=== PATIENT | female | born 1945 | race Caucasian/White ===

== ENCOUNTER 2018-02-20 19:28 | Inpatient (IN) | payer MEDICARE, MEDICAID ==
[~2018-02-20] VITALS: Ht 162.6 cm; Wt 75.5 kg
[2018-02-20 19:28] VITALS: BP 175/73
[2018-02-20] MEDS ORDERED: FOLIC ACID1 MG ORAL (19:36)
[2018-02-20] MEDS ORDERED: NORVASC10 MG ORAL (19:36)
[2018-02-20] MEDS ORDERED: ELIQUIS2.5 MG PO (19:36)
[2018-02-20] MEDS ORDERED: METOPROLOL-HCT1 EAC1 ORAL (19:36)
[2018-02-20] MEDS ORDERED: CRESTOR20 MG ORAL (19:36)
[2018-02-20] MEDS ORDERED: JANUVIA100 MG ORAL (19:36)
[2018-02-20] MEDS ORDERED: AMARYL1 MG ORAL (19:36)
[2018-02-20] MEDS ORDERED: BENICAR HCT 401 EACH ORAL (19:36)
[2018-02-20] MEDS ORDERED: ISOSORBIDE DINI10 MG ORAL (19:36)
[2018-02-20 21:20] VITALS: BP 168/72
--- NOTE | 2018-02-20 21:43 | Emergency Room Report ---
History of Present Illness General Chief Complaint: Multiple Trauma/Fall Source: Patient (Sheila Aguirre DO) Present Illness HPI This patient was shopping at the [place] when she stepped off of a curb incorrectly and fell onto her left side. She fell onto her left hip primarily. She has a history of a hip replacement on this side. She has pain in her left hip and was unable to ambulate after the incident secondary to pain. She denies head trauma or other injury. She denies neck pain. She is chest pain or shortness of breath. She denies abdominal pain. She has no other complaints. (Sheila Aguirre DO) Allergies: Coded Allergies: No Known Allergies (Unverified , 02/20/18) Patient History Past Medical History: see triage record, DM, HTN, CAD, other - On elaquis Past Surgical History: other - L. hip replacement Social History: Denies: smoking, alcohol use, drug use Reviewed Nursing Documentation: PMH: Agreed; PSxH: Agreed (Sheila Aguirre DO) Nursing Documentation-PMH Hx Hypertension: Yes Hx Diabetes: Yes (Sheila Aguirre DO) Review of Systems All Other Systems: negative except mentioned in HPI (Sheila Aguirre DO) Physical Exam Vital Signs Date Time Temp Pulse Resp B/P (MAP) Pulse Ox O2 Delivery O2 Flow Rate FiO2 02/20/18 19:17 97.7 55 20 187/78 92 Room Air Sp02 EP Interpretation: reviewed, normal General Appearance: no apparent distress, alert, GCS 15, non-toxic Head: normocephalic, atraumatic Eyes: bilateral eye normal inspection, bilateral eye PERRL ENT: hearing grossly normal, normal pharynx, no angioedema, normal voice Neck: full range of motion, supple/symm/no masses Respiratory: chest non-tender, lungs clear, normal breath sounds, no respiratory distress, no retraction, no accessory muscle use, speaking full sentences Cardiovascular #1: regular rate, rhythm, no edema Gastrointestinal: normal bowel sounds, non tender, soft, non-distended, no guarding, no rebound Rectal: deferred Musculoskeletal: back normal, other - Unable to ambulate secondary to pain in L. hip. Pain w/ ROM and ttp L. hip Neurologic: alert, oriented x3, responsive, motor strength/tone normal, sensory intact, speech normal Psychiatric: judgement/insight normal, memory normal, mood/affect normal, no suicidal/homicidal ideation Skin: normal color, no rash, warm/dry, well hydrated (Sheila Aguirre DO) Medical Decision Making Diagnostic Impression: Primary Impression: Acetabular fracture Qualified Codes: S32.402A - Unspecified fracture of left acetabulum, initial encounter for closed fracture Additional Impressions: Pubic ramus fracture Qualified Codes: S32.592A - Other specified fracture of left pubis, initial encounter for closed fracture Hypertension Qualified Codes: I10 - Essential (primary) hypertension UTI (urinary tract infection) Qualified Codes: N30.00 - Acute cystitis without hematuria ER Course This patient has a comminuted acetabular fracture and a pubic rami fracture. This is a complicated pelvic fracture. Dr. Kwon, orthopedic surgery, states that he is unable to do the surgery at [facility] and requested her transfer to [facility]. (Sheila Aguirre DO) ER Course Patient signout to me. She had a mechanical fall with nondisplaced left acetabular and pubic rami fracture. No other injury. She is otherwise stable. I attempted to transfer patient to [place] and [facility]. Both places are full. After several hours, will admit the patient here. I discussed case with Dr. Farooq for admission. I also contacted Dr. Meléndez, [facility], for consultation. Lab Results Impression labs unremarkable (Mitch Jasso MD) EKG Diagnostic Results Rate: normal Rhythm: NSR ST Segments: no acute changes (Mitch Jasso MD) Rhythm Strip Diag. Results EP Interpretation: yes Rate: 76 Rhythm: NSR, no PVC's, no ectopy (Mitch Jasso MD) Other X-Ray Diagnostic Results Other X-Ray Diagnostic Results : X-Ray ordered: L. hip xray # of Views/Limited Vs Complete: Complete Indication: Pain EP Interpretation: Yes Interpretation: other - Concern for pubic rami and acetabular fx. Impression: Other - See above Electronically Signed by: Sheila aguirre DO (Sheila Aguirre DO) CT/MRI/US Diagnostic Results CT/MRI/US Diagnostic Results : Imaging Test Ordered: CT pelvis: (Sheila Aguirre DO) CT/MRI/US Diagnostic Results : Imaging Test Ordered: CT pelvis Impression Read by radiologist. Nondisplaced fracture of the left acetabulum. Nondisplaced fracture of the left superior and inferior pubic rami. (Mitch Jasso MD) Last Vital Signs Date Time Temp Pulse Resp B/P (MAP) Pulse Ox O2 Delivery O2 Flow Rate FiO2 02/20/18 19:28 55 20 Room Air 02/20/18 19:28 97.8 175/73 92 (Sheila Aguirre DO) Status: improved (Mitch Jasso MD) Disposition: ADMITTED INPATIENT Condition: Serious Referrals: NON PHYSICIAN (PCP) Sheila Aguirre DO Feb 20, 2018 21:43 Mitch Jasso MD Feb 21, 2018 01:16
[2018-02-20 22:55] LABS: BASOPHILS % (AUTO) 0.8 % (0.0-2.0); EOSINOPHILS % (AUTO) 0.9 % (0.0-3.0); HEMOGLOBIN 12.3 G/DL (12.0-16.0); LYMPHOCYTES % (AUTO) 7.4 % (20.0-45.0); MEAN CORPUSCULAR VOLUME 96 FL (80-99); MONOCYTES % (AUTO) 3.5 % (1.0-10.0); NEUTROPHILS % (AUTO) 87.4 % (45.0-75.0); PLATELET COUNT 227 K/UL (150-450); RED BLOOD COUNT 3.74 M/UL (4.20-5.40); RED CELL DISTRIBUTION WIDTH 11.6 % (11.6-14.8)
[2018-02-20 23:01] LABS: ANION GAP 8 mmol/L (5-15); BLOOD UREA NITROGEN 18 mg/dL (7-18); CALCIUM 9.3 MG/DL (8.5-10.1); CARBON DIOXIDE 25 MMOL/L (21-32); CHLORIDE 106 MMOL/L (98-107); CREATININE 0.9 MG/DL (0.55-1.30); POTASSIUM 4.1 MMOL/L (3.5-5.1); SODIUM 138 MMOL/L (136-145)
[2018-02-20 23:12] LABS: ALANINE AMINOTRANSFERASE 37 U/L (12-78); ALBUMIN 3.7 G/DL (3.4-5.0); ALBUMIN/GLOBULIN RATIO 0.9 (1.0-2.7); ALKALINE PHOSPHATASE 150 U/L (46-116); ASPARTATE AMINO TRANSFERASE 22 U/L (15-37); BILIRUBIN,TOTAL 1.1 MG/DL (0.2-1.0)
[2018-02-20 23:17] LABS: BILIRUBIN,DIRECT 0.2 MG/DL (0.0-0.3)
[2018-02-20 23:30] VITALS: BP 164/71
[2018-02-21 01:12] LABS: APPEARANCE,URINE CLOUDY; BILIRUBIN, URINE NEGATIVE (NEGATIVE); COLOR,URINE YELLOW; GLUCOSE, URINE (UA) 2+ (NEGATIVE); KETONES,URINE 1+ (NEGATIVE); LEUKOCYTE ESTERASE ,URINE 3+ (NEGATIVE); NITRITE,URINE NEGATIVE (NEGATIVE); PH,URINE 5 (4.5-8.0); PROTEIN,URINE 3+ (NEGATIVE); UROBILINOGEN,URINE NORMAL MG/DL (0.0-1.0)
[2018-02-21] MEDS ORDERED: cefTRIAXone 1 GM in NS 55 ML IVPB ONE (01:30)
[2018-02-21 02:30] VITALS: BP 136/46
[2018-02-21 03:15] VITALS: BP 143/59
--- NOTE | 2018-02-21 07:38 | Consultation ---
Consult Note Consult Note patient seen/evaluated. s/p Left Hip ORIf with long nail. New trauma (curb side fall) with Pelvic fracture. Left pubic rami fx and non-displaced superior column acetabular fracture. Recommend non-operative treatment with 6 weeks of protected weight bearing on the left lower extremity. Follow up in 2 weeks for re-xray. Full consult dictated. Yusuf Meléndez MD Feb 21, 2018 07:38
[2018-02-21 08:00] VITALS: BP 124/69
[2018-02-21 08:03] LABS: HEMATOCRIT 32.5 % (37.0-47.0); HEMOGLOBIN 11.3 G/DL (12.0-16.0); MEAN CORPUSCULAR VOLUME 96 FL (80-99); PLATELET COUNT 210 K/UL (150-450); RED BLOOD COUNT 3.38 M/UL (4.20-5.40); RED CELL DISTRIBUTION WIDTH 11.5 % (11.6-14.8); WHITE BLOOD COUNT 10.1 K/UL (4.8-10.8)
--- NOTE | 2018-02-21 08:14 | History and Physical ---
History of Present Illness General Date patient seen: Feb 21, 2018 Time patient seen: 07:36 Reason for Hospitalization: Multiple Trauma/Fall Present Illness HPI Markie Orellana is a 72 yo female with h/o CAD s/p stents x 4. Patient is a poor historian and does not know why she takes her medications however does know the medications she is on and states she is complaint. Patient states she had stents placed in [place]. Patient presented to [facility] after stepping incorrectly off of a curb while shopping today. She states she fell on her left side and states pain is only on her left hip, denies radiation of pain, denies any neck pain or trauma to her head. Denies headaches or visual changes. She states her pain was 10/10 in severity and was unable to walk on it after the incident. Denies chest pain or sob. XRay left hip done, Concern for pubic rami and acetabular fx. Dr. Meléndez called by ED. social hx reviewed, denies smoking, alcohol use or drug use family hx reviewed, negative any significant past fam hx that she is aware of. code status discussed at length, would like to remain FULL CODE Allergies: Coded Allergies: No Known Allergies (Unverified , 02/20/18) Medication History Scheduled Amlodipine Besylate (Norvasc), 10 MG ORAL DAILY, (Reported) Apixaban (Eliquis), 2.5 MG PO BID, (Reported) Folic Acid* (Folic Acid*), 1 MG ORAL DAILY, (Reported) Glimepiride* (Amaryl*), 4 MG ORAL BID, (Reported) Isosorbide Dinitrate* (Isordil*), 120 MG ORAL DAILY, (Reported) Metoprolol/Hydrochlorothiazide (Metoprolol-Hctz 100-25 Mg Tab), 1 TAB ORAL DAILY , (Reported) Olmesartan/Hydrochlorothiazide 40-12.5MG (Benicar Hct 40-12.5 Mg Tablet), 1 TAB ORAL DAILY, (Reported) Rosuvastatin Calcium* (Crestor*), 20 MG ORAL DAILY, (Reported) Sitagliptin (Januvia), 100 MG ORAL DAILY, (Reported) Patient History History Provided By: Patient Healthcare decision maker Resuscitation status Full Code Advanced Directive on File Review of Systems Constitutional: Reports: weakness - left leg weakness, other; Denies: chills, sweats, fever, malaise Eye: Reports: other; Denies: eye pain, blurred vision, tearing, double vision, nose pain, nose congestion, acuity changes, discharge ENT: Denies: ear pain, ear discharge, nose pain, nose congestion, throat pain, throat swelling, mouth pain, hearing loss, nasal discharge Respiratory: Denies: cough, orthopnea, shortness of breath, stridor, wheezing, AND[place], sputum Cardiovascular: Denies: chest pain, edema, palpitations, syncope, PND Gastrointestinal: Denies: abdominal pain, constipation, diarrhea, nausea, vomiting, melena, hematemesis Genitourinary: Reports: pain; Denies: discharge, dysuria, frequency, hematuria , retention, incontinence, urgency, vag bleed/dc Musculoskeletal: Reports: joint pain - left hip pain; Denies: back pain, gout, joint swelling, muscle pain, muscle stiffness Skin: Denies: rash, change in color, change in hair/nails, dryness, lesions Psychiatric: Denies: prior hx, anxiety, depressed feelings, emotional problems , SI, HI, hallucinations Neurological: Denies: headache, numbness, paresthesia, seizure, tingling, tremors, focal weakness, syncope, dizziness Endocrine: Denies: excessive sweating, flushing, intolerance to temperature, increased thirst, increased urine, unexplained weight loss Hematologic/Lymphatic: Denies: anemia, blood clots, easy bleeding, easy bruising, swollen glands, diathesis Physical Exam General Appearance: WD/WN, no apparent distress, alert Lines, tubes and drains: peripheral HEENT: normocephalic, atraumatic, anicteric, mucous membranes moist, PERRL Neck: non-tender, normal alignment, supple, normal inspection Respiratory/Chest: chest wall non-tender, lungs clear, normal breath sounds, no respiratory distress, no accessory muscle use Cardiovascular/Chest: normal peripheral pulses, normal rate, regular rhythm Extremities: normal inspection, no calf tenderness, other - left hip ttp with dec rom due to pain Skin Exam: normal pigmentation Neurologic: [employer] rep II-XII grossly normal, no motor/sensory deficits, alert, oriented x 3, responsive, normal mood/affect Last 24 Hour Vital Signs Date Time Temp Pulse Resp B/P (MAP) Pulse Ox O2 Delivery O2 Flow Rate FiO2 02/21/18 04:00 65 12/4/18 03:15 97.8 73 20 143/59 (87) 97 02/21/18 03:08 Nasal Cannula 2.0 02/21/18 03:00 73 02/21/18 02:40 97.8 56 19 136/46 98 Room Air 02/21/18 02:30 97.8 55 19 136/46 92 Nasal Cannula 2.0 02/21/18 01:30 136/46 02/20/18 23:30 97.8 56 19 164/71 92 Nasal Cannula 2.0 02/20/18 21:20 97.7 57 19 168/72 92 2.0 02/20/18 19:28 55 20 Room Air 02/20/18 19:28 97.8 56 19 175/73 92 Room Air 02/20/18 19:17 97.7 55 20 187/78 92 Room Air Intake and Output 02/20/18 02/21/18 19:00 07:00 Output Total 600 ml Balance -600 ml Output Urine Total 600 ml Laboratory Tests Test 02/20/18 22:35 White Blood Count 16.0 K/UL (4.8-10.8) H Red Blood Count 3.74 M/UL (4.20-5.40) L Hemoglobin 12.3 G/DL (12.0-16.0) Hematocrit 36.0 % (37.0-47.0) L Mean Corpuscular Volume 96 FL (80-99) Mean Corpuscular Hemoglobin 32.9 PG (27.0-31.0) H Mean Corpuscular Hemoglobin Concent 34.2 G/DL (32.0-36.0) Red Cell Distribution Width 11.6 % (11.6-14.8) Platelet Count 227 K/UL (150-450) Mean Platelet Volume 8.5 FL (6.5-10.1) Neutrophils (%) (Auto) 87.4 % (45.0-75.0) H Lymphocytes (%) (Auto) 7.4 % (20.0-45.0) L Monocytes (%) (Auto) 3.5 % (1.0-10.0) Eosinophils (%) (Auto) 0.9 % (0.0-3.0) Basophils (%) (Auto) 0.8 % (0.0-2.0) Prothrombin Time 10.8 SEC (9.30-11.50) Prothromb Time International Ratio 1.0 (0.9-1.1) Activated Partial Thromboplast Time 29 SEC (23-33) Urine Color Yellow Urine Appearance Cloudy Urine pH 5 (4.5-8.0) Urine Specific Clifford 1.020 (1.005-1.035) Urine Protein 3+ (NEGATIVE) H Urine Glucose (UA) 2+ (NEGATIVE) H Urine Ketones 1+ (NEGATIVE) H Urine Blood 5+ (NEGATIVE) H Urine Nitrite Negative (NEGATIVE) Urine Bilirubin Negative (NEGATIVE) Urine Urobilinogen Normal MG/DL (0.0-1.0) Urine Leukocyte Esterase 3+ (NEGATIVE) H Urine RBC Tntc /HPF (0 - 2) H Urine WBC Tntc /HPF (0 - 2) H Urine Squamous Epithelial Cells Moderate /LPF (NONE/OCC) H Urine Bacteria Many /HPF (NONE) H Sodium Level 138 MMOL/L (136-145) Potassium Level 4.1 MMOL/L (3.5-5.1) Chloride Level 106 MMOL/L (98-107) Carbon Dioxide Level 25 MMOL/L (21-32) Anion Gap 8 mmol/L (5-15) Blood Urea Nitrogen 18 mg/dL (7-18) Creatinine 0.9 MG/DL (0.55-1.30) Estimat Glomerular Filtration Rate mL/min (>60) Glucose Level 210 MG/DL (74-106) H Calcium Level 9.3 MG/DL (8.5-10.1) Total Bilirubin 1.1 MG/DL (0.2-1.0) H Direct Bilirubin 0.2 MG/DL (0.0-0.3) Aspartate Amino Transf (AST/SGOT) 22 U/L (15-37) Alanine Aminotransferase (ALT/SGPT) 37 U/L (12-78) Alkaline Phosphatase 150 U/L (46-116) H Total Protein 7.7 G/DL (6.4-8.2) Albumin 3.7 G/DL (3.4-5.0) Globulin 4.0 g/dL Albumin/Globulin Ratio 0.9 (1.0-2.7) L Height (Feet): 5 Height (Inches): 4.00 Weight (Pounds): 165 Medications Current Medications Medications (Trade) Dose Ordered Sig/Randy Route PRN Reason Start Time Stop Time Status Last Admin Dose Admin Acetaminophen/ Hydrocodone Bitart ([place] 5/325) 1 tab Q4H PRN ORAL Moderate Pain (Pain Scale 4-6) 02/21/18 02:15 02/28/18 02:14 Dextrose (Dextrose 50%) 25 ml Q30M PRN IV Hypoglycemia 02/21/18 02:15 03/23/18 02:14 Dextrose (Dextrose 50%) 50 ml Q30M PRN IV Hypoglycemia 02/21/18 02:15 03/23/18 02:14 Assessment/Plan Problem List: (1) Pubic ramus fracture ICD Codes: S32.599A - Other specified fracture of unspecified pubis, initial encounter for closed fracture SNOMED: 28494136 Qualifiers: Qualified Codes: S32.592A - Other specified fracture of left pubis, initial encounter for closed fracture (2) Acetabular fracture ICD Codes: S32.409A - Unspecified fracture of unspecified acetabulum, initial encounter for closed fracture SNOMED: 45072990 Qualifiers: Qualified Codes: S32.402A - Unspecified fracture of left acetabulum, initial encounter for closed fracture (3) Hypertension ICD Codes: I10 - Essential (primary) hypertension SNOMED: 88486519 Qualifiers: Qualified Codes: I10 - Essential (primary) hypertension (4) CAD S/P percutaneous coronary angioplasty ICD Codes: I25.10 - Atherosclerotic heart disease of [place] coronary artery without angina pectoris; Z98.61 - Coronary angioplasty status SNOMED: 719899224 (5) Hx of fracture of hip ICD Codes: Z87.81 - Personal history of (healed) traumatic fracture SNOMED: 605608023 (6) Hyperglycemia ICD Codes: R73.9 - Hyperglycemia, unspecified SNOMED: 59230723 (7) Diabetes ICD Codes: E11.9 - Type 2 diabetes mellitus without complications SNOMED: 99853477 Qualifiers: Qualified Codes: E11.9 - Type 2 diabetes mellitus without complications; Z79.4 - FCI (current) use of insulin (8) Trauma left hip ICD Codes: S79.912A - Unspecified injury of left hip, initial encounter SNOMED: 272498333 Qualifiers: Qualified Codes: S79.912A - Unspecified injury of left hip, initial encounter (9) Intractable pain ICD Codes: R52 - Pain, unspecified SNOMED: 25385548 (10) Fall from ground level ICD Codes: W18.30XA - Fall on same level, unspecified, initial encounter SNOMED: 61247827 Status: unchanged Assessment/Plan Pubic ramus fracture acetabular fracture trauma left hip intractable pain fall from ground level hx of fracture hip - imaging reviewed, Concern for pubic rami and acetabular fx - Dr Meléndez (ortho) called by ED, tried to transfer to [facility] per ortho recs however beds are full currently. - per ortho recs, patient is s/p Left Hip ORIf with long nail. Left pubic rami fx and non-displaced superior column acetabular fracture. per ortho recs, nonop tx with 6 wks of protected weight bearing on left lower extremity. Follow up in 2 weeks for re-xray. - PT eval - continue pain control with IV morphine 4mg q6hrs prn pain essential HTN - resume home meds - reviewed home meds with patient CAD s/p percuateous coronary angioplasty - cards consulted considering complicated cardiac hx - resume home meds along with eliquis, unsure of why she is on eliquis, patiet does not know either hyperglycemia uncontrolled Diabetes type 1 - start ISS - accuchecks ppx: on eliquis, can continue as it does not seem that there is any surgery planned currently diet: cardiac/diabetic Inpatient level of care warranted for this patient because patient is a 72 yo female with complicated cardiac hx with CAD sp stenting who presents after GLF and resultant hip pain. I have a high level of concern because of hip fracture noted on xr and patient's hx of hip fracture in the past. Plan of care is for cardiology and ortho evaluation along with physical therapy evaluation for safe dispo. Patient care is expected to be greater than 2 midnights. CPT code: 97285 I have documented, updated, and reviewed the patient's current medication list and have documented it in the patient's note. I have spent over 77 minutes on this patient's case, and over 45 minutes was dedicated to counseling and/or care coordination Hyun Berrios MD [facility] Hyun Berrios MD Feb 21, 2018 08:14
[2018-02-21 08:16] LABS: ANION GAP 8 mmol/L (5-15); BLOOD UREA NITROGEN 19 mg/dL (7-18); CALCIUM 8.7 MG/DL (8.5-10.1); CARBON DIOXIDE 25 MMOL/L (21-32); CHLORIDE 106 MMOL/L (98-107); CREATININE 0.9 MG/DL (0.55-1.30); POTASSIUM 4.1 MMOL/L (3.5-5.1); SODIUM 139 MMOL/L (136-145)
--- NOTE | 2018-02-21 08:54 | Diagnostic Imaging Report ---
Indication: Pain, trauma, status post fall Technique: Noncontrast spiral acquisitions obtained through the pelvis. Multiplanar reconstructions generated. Total dose length product 539.35 mGycm. CTDIvol(s) 12.24 mGy. Dose reduction achieved using automated exposure control Comparison: Plain radiographs of earlier the same day Findings: Surgical hardware is seen reducing old healed left hip intertrochanteric fracture. There is a comminuted fracture of the acetabulum which is nondisplaced. This extends cephalad into the left iliac bone. This also extends into the base of the left pubic bone. There is also a fracture of the inferior pubic ramus, likewise nondisplaced. The sacrum is intact. The left sided pelvic bones are intact. The left hip is intact. There is slight contusion of the lateral subcutaneous fat. Slight increased thickness of the pelvic wall musculature medial to the acetabulum likely reflects hematoma related to the fracture. Incidental note is made of a small anterior pelvic wall ventral hernia. Gas is seen within the bladder lumen. The remaining visualized pelvic viscera are unremarkable. Impression: Positive for fractures of the acetabulum, superior and inferior pubic rami, as described Contusive changes both deep and superficial as described Surgical hardware is seen reducing old healed left intertrochanteric fracture. No evidence of acute reinjury Gas within the bladder lumen, presumably related to recent catheterization. Correlate with history of such Small fat-containing ventral hernia incidentally noted This agrees with the preliminary interpretation provided overnight by [facility] telerad[facility] service. The CT scanner at [facility] is accredited by the [employer] [employer] and the scans are performed using protocols designed to limit radiation exposure to as low as reasonably achievable to attain images of sufficient resolution adequate for diagnostic evaluation.
[2018-02-21] MEDS: Eliquis 2.5mg tablet ORAL SCH ×2 (09:30→17:08)
--- NOTE | 2018-02-21 09:31 | Consultation ---
History of Present Illness General Date patient seen: Feb 21, 2018 Time patient seen: 09:19 Chief Complaint: Multiple Trauma/Fall Present Illness HPI Pt was brought in ED by Ambulance from a store, s/p fall and c/o pain on left hip which had surgery before. Seen by ortho this AM: s/p Left Hip ORIF with long nail. New trauma (curb side fall) with Pelvic fracture. Left pubic rami fx and non-displaced superior column acetabular fracture. Recommend non- operative treatment with 6 weeks of protected weight bearing on the left lower extremity. He has a prior history of CAD s/p stents x 4. Patient is a poor historian, daughter at bedside. Chest has no chest pain currently. Allergies: Coded Allergies: No Known Allergies (Unverified , 02/20/18) Medication History Scheduled Amlodipine Besylate (Norvasc), 10 MG ORAL DAILY, (Reported) Apixaban (Eliquis), 2.5 MG PO BID, (Reported) Folic Acid* (Folic Acid*), 1 MG ORAL DAILY, (Reported) Glimepiride* (Amaryl*), 4 MG ORAL BID, (Reported) Isosorbide Dinitrate* (Isordil*), 120 MG ORAL DAILY, (Reported) Metoprolol/Hydrochlorothiazide (Metoprolol-Hctz 100-25 Mg Tab), 1 TAB ORAL DAILY , (Reported) Olmesartan/Hydrochlorothiazide 40-12.5MG (Benicar Hct 40-12.5 Mg Tablet), 1 TAB ORAL DAILY, (Reported) Rosuvastatin Calcium* (Crestor*), 20 MG ORAL DAILY, (Reported) Sitagliptin (Januvia), 100 MG ORAL DAILY, (Reported) Patient History Healthcare decision maker Resuscitation status Full Code Advanced Directive on File Physical Exam Last 24 Hour Vital Signs Date Time Temp Pulse Resp B/P (MAP) Pulse Ox O2 Delivery O2 Flow Rate FiO2 02/21/18 04:00 65 02/21/18 03:15 97.8 73 20 143/59 (87) 97 02/21/18 03:08 Nasal Cannula 2.0 02/21/18 03:00 73 02/21/18 02:40 97.8 56 19 136/46 98 Room Air 02/21/18 02:30 97.8 55 19 136/46 92 Nasal Cannula 2.0 02/21/18 01:30 136/46 02/20/18 23:30 97.8 56 19 164/71 92 Nasal Cannula 2.0 02/20/18 21:20 97.7 57 19 168/72 92 2.0 02/20/18 19:28 55 20 Room Air 02/20/18 19:28 97.8 56 19 175/73 92 Room Air 02/20/18 19:17 97.7 55 20 187/78 92 Room Air Intake and Output 02/20/18 02/21/18 19:00 07:00 Output Total 600 ml Balance -600 ml Output Urine Total 600 ml Laboratory Tests Test 02/20/18 22:35 02/21/18 07:25 White Blood Count 16.0 K/UL (4.8-10.8) H 10.1 K/UL (4.8-10.8) Red Blood Count 3.74 M/UL (4.20-5.40) L 3.38 M/UL (4.20-5.40) L Hemoglobin 12.3 G/DL (12.0-16.0) 11.3 G/DL (12.0-16.0) L Hematocrit 36.0 % (37.0-47.0) L 32.5 % (37.0-47.0) L Mean Corpuscular Volume 96 FL (80-99) 96 FL (80-99) Mean Corpuscular Hemoglobin 32.9 PG (27.0-31.0) H 33.4 PG (27.0-31.0) H Mean Corpuscular Hemoglobin Concent 34.2 G/DL (32.0-36.0) 34.9 G/DL (32.0-36.0) Red Cell Distribution Width 11.6 % (11.6-14.8) 11.5 % (11.6-14.8) L Platelet Count 227 K/UL (150-450) 210 K/UL (150-450) Mean Platelet Volume 8.5 FL (6.5-10.1) 8.3 FL (6.5-10.1) Neutrophils (%) (Auto) 87.4 % (45.0-75.0) H % (45.0-75.0) Lymphocytes (%) (Auto) 7.4 % (20.0-45.0) L % (20.0-45.0) Monocytes (%) (Auto) 3.5 % (1.0-10.0) % (1.0-10.0) Eosinophils (%) (Auto) 0.9 % (0.0-3.0) % (0.0-3.0) Basophils (%) (Auto) 0.8 % (0.0-2.0) % (0.0-2.0) Prothrombin Time 10.8 SEC (9.30-11.50) Prothromb Time International Ratio 1.0 (0.9-1.1) Activated Partial Thromboplast Time 29 SEC (23-33) Urine Color Yellow Urine Appearance Cloudy Urine pH 5 (4.5-8.0) Urine Specific [place] 1.020 (1.005-1.035) Urine Protein 3+ (NEGATIVE) H Urine Glucose (UA) 2+ (NEGATIVE) H Urine Ketones 1+ (NEGATIVE) H Urine Blood 5+ (NEGATIVE) H Urine Nitrite Negative (NEGATIVE) Urine Bilirubin Negative (NEGATIVE) Urine Urobilinogen Normal MG/DL (0.0-1.0) Urine Leukocyte Esterase 3+ (NEGATIVE) H Urine RBC Tntc /HPF (0 - 2) H Urine WBC Tntc /HPF (0 - 2) H Urine Squamous Epithelial Cells Moderate /LPF (NONE/OCC) H Urine Bacteria Many /HPF (NONE) H Sodium Level 138 MMOL/L (136-145) 139 MMOL/L (136-145) Potassium Level 4.1 MMOL/L (3.5-5.1) 4.1 MMOL/L (3.5-5.1) Chloride Level 106 MMOL/L (98-107) 106 MMOL/L (98-107) Carbon Dioxide Level 25 MMOL/L (21-32) 25 MMOL/L (21-32) Anion Gap 8 mmol/L (5-15) 8 mmol/L (5-15) Blood Urea Nitrogen 18 mg/dL (7-18) 19 mg/dL (7-18) H Creatinine 0.9 MG/DL (0.55-1.30) 0.9 MG/DL (0.55-1.30) Estimat Glomerular Filtration Rate mL/min (>60) mL/min (>60) Glucose Level 210 MG/DL (74-106) H 231 MG/DL (74-106) H Calcium Level 9.3 MG/DL (8.5-10.1) 8.7 MG/DL (8.5-10.1) Total Bilirubin 1.1 MG/DL (0.2-1.0) H Direct Bilirubin 0.2 MG/DL (0.0-0.3) Aspartate Amino Transf (AST/SGOT) 22 U/L (15-37) Alanine Aminotransferase (ALT/SGPT) 37 U/L (12-78) Alkaline Phosphatase 150 U/L (46-116) H Total Protein 7.7 G/DL (6.4-8.2) Albumin 3.7 G/DL (3.4-5.0) Globulin 4.0 g/dL Albumin/Globulin Ratio 0.9 (1.0-2.7) L Neutrophils % (Manual) Pending Lymphocytes % (Manual) Pending Platelet Estimate Pending Platelet Morphology Pending Height (Feet): 5 Height (Inches): 4.00 Weight (Pounds): 165 Medications Current Medications Medications (Trade) Dose Ordered Sig/Randy Route PRN Reason Start Time Stop Time Status Last Admin Dose Admin Acetaminophen/ Hydrocodone Bitart (Frankewing 5/325) 1 tab Q4H PRN ORAL Moderate Pain (Pain Scale 4-6) 02/21/18 02:15 02/28/18 02:14 Amlodipine Besylate (Norvasc) 10 mg DAILY ORAL 02/21/18 09:00 03/23/18 08:59 Apixaban (Eliquis) 2.5 mg BID ORAL 02/21/18 09:00 03/23/18 08:59 Atorvastatin Calcium (Lipitor) 20 mg BEDTIME ORAL 02/21/18 21:00 03/23/18 20:59 Dextrose (Dextrose 50%) 25 ml Q30M PRN IV Hypoglycemia 02/21/18 07:45 03/23/18 07:44 Dextrose (Dextrose 50%) 50 ml Q30M PRN IV Hypoglycemia 02/21/18 07:45 03/23/18 07:44 Folic Acid (Folate) 1 mg DAILY ORAL 02/21/18 09:00 03/23/18 08:59 Hydrochlorothiazide (Hydrodiuril) 25 mg DAILY ORAL 02/21/18 09:00 03/23/18 08:59 Insulin Aspart (NovoLOG) BEFORE MEALS AND HS SUBQ 02/21/18 11:30 03/23/18 11:29 Isosorbide Dinitrate (Isordil) 120 mg DAILY ORAL 02/21/18 09:00 03/23/18 08:59 Metoprolol Succinate (Toprol XL) 100 mg DAILY ORAL 02/21/18 09:00 03/23/18 08:59 Assessment/Plan Status: stable Assessment/Plan Assessment/Plan Problem List: (1) Pubic ramus fracture (2) Acetabular fracture (3) Hypertension (4) CAD S/P percutaneous coronary angioplasty (5) Hx of fracture of hip (6) Hyperglycemia (7) Diabetes (8) Trauma left hip (9) Intractable pain (10) Fall from ground level Plan: Currently stable pain control Physical therapy Currently non operative treatment with outpatient followup Recommend outpatient stress test to evaluate coronary perfusion prior to any procedures given hx of CAD and cardiac risk factors Patient currently in normal sinus rhythm, consider outpatient ziopatch and if no runs of AFIB then d/c eliquis Maintain aspirin Maintain statin Continue imdur/norvasc for coronary vasodilation and BP management Continue metoprolol Strict glucose control Will need outpatient echocardiogram to evaluate LV function/filling pressures Follow up in clinic 1-2 weeks Magdi Howard MD Feb 21, 2018 09:31
[2018-02-21] MEDS: Norco 5mg/325mg tab ORAL PRN (09:32)
[2018-02-21] MEDS: Metoprolol Succinate XL 100mg tab ORAL SCH (09:33)
--- NOTE | 2018-02-21 10:26 | Diagnostic Imaging Report ---
Indication: Trauma, pain, status post fall Technique: One view of the pelvis Comparison: none Findings: Lucency through the left posterior acetabular roof is consistent with a nondisplaced acetabular fracture. There is a fracture of the left inferior pubic ramus. Surgical hardware is seen reducing old well-healed intertrochanteric fracture. Hardware appears to be intact. Right hip and pelvis appear intact. The hip joint spaces are preserved. Impression: Positive for left acetabular and right inferior pubic ramus fractures Postsurgical and posttraumatic changes of the left hip
[2018-02-21 12:00] VITALS: BP 106/57
[2018-02-21] MEDS: NovoLOG Insulin Flexpen SUBQ SCH ×3 (12:15→20:57)
[2018-02-21 16:00] VITALS: BP 123/55
--- NOTE | 2018-02-21 19:38 | Cardiology Report ---
APPROVED REPORT EKG Measurement Heart [id number] Normal sinus rhythm Left bundle branch block Abnormal ECG
[2018-02-21 20:00] VITALS: BP 138/68
[2018-02-21] MEDS ORDERED: Atorvastatin 20mg tab ORAL SCH (21:00)
--- NOTE | 2018-02-21 21:45 | Consultation ---
DATE OF CONSULTATION: 02/21/2018 ORTHOPEDIC CONSULTATION CONSULTING PHYSICIAN: Yusuf Meléndez M.D. REASON FOR CONSULTATION: Left-sided pelvic fracture. BRIEF HISTORY: The patient is a pleasant 72-year-old female who had a mechanical fall off of a curb. She was shopping and fell down. She had immediate onset of pain about the left side of the hip. She had history of previous hip fracture treated with a long intramedullary nail with a hip screw that has gone onto healing, however, now she complained about anterior pelvic pain. She is unable to bear weight on left leg. She was admitted through the ER. X-rays showed a pubic rami fracture and CT scan showed a nondisplaced anterior column and medial nondisplaced fracture. Joint congruity is well maintained. PAST MEDICAL HISTORY: Significant for history of coronary artery disease, status post stent placement in [place]. PAST SURGICAL HISTORY: As above with left hip fracture, intramedullary nail treatment MEDICATIONS: Please see chart. This was reviewed and reconciled. ALLERGIES: No known drug allergies. SOCIAL HISTORY: She lives at home on a two-story apartment. She has 13 steps to go up and down. She lives with her brother. REVIEW OF SYSTEMS: She was able to ambulate without assistive devices prior to this fall. PHYSICAL EXAMINATION: GENERAL: She is a very pleasant lady, cooperative with examination. EXTREMITIES: Examination of upper extremity and right lower extremity are normal. Examination of the right left hip and pelvis reveals that she has a well-healed incision over the lateral aspect of the hip. Range of motion of the hip causes pain over the pubic rami. She is neurologically intact distally. She has tenderness over the anterior pubic rami and over the left side of the pelvis. Internal and external rotation is normal. There is no shortening of the hip or left leg. X-RAYS: X-rays of the AP of the pelvis were reviewed. There is evidence of intramedullary nail in the left femur with the hip screw in the neck and head. This fracture appeared well healed. X-rays of the pelvis were reviewed. There is evidence of superior and inferior pubic rami fracture. There is also possible extension into the anterior column of the acetabulum. CT scan was reviewed. There is evidence of nondisplaced acetabular fracture. Articular cartilage is well maintained. IMPRESSION: The patient is a 72-year-old female with left-sided superior and inferior pubic rami fracture and nondisplaced acetabular fracture. PLAN: At this time, I discussed with the patient. I explained to her my findings. I recommend non-operative treatment for this patient. Recommend toe-touch weightbearing on the left lower extremity for the next six. In six weeks, we will allow her to progress to weightbearing as tolerated. Meanwhile, I will recommend the follow-up x-ray in about approximately two weeks to make sure there is no significant displacement of the fractures. Physical therapy has been ordered for her and she will be started on physical therapy. All questions were answered. Most likely, the patient needs to be admitted to halfway facility until she is able to ambulate well. Yusuf Meléndez M.D. DR: MARCIAL JOB#: [id number] CC: CORBIN
[2018-02-22] VITALS (7 sets, daily range): BP systolic 122–147; BP diastolic 59–71
[2018-02-22] MEDS: NovoLOG Insulin Flexpen SUBQ SCH ×4 (06:24→22:08)
--- NOTE | 2018-02-22 08:29 | General Progress Note ---
Assessment/Plan Problem List: (1) Pubic ramus fracture ICD Codes: S32.599A - Other specified fracture of unspecified pubis, initial encounter for closed fracture SNOMED: 95674858 Qualifiers: Qualified Codes: S32.592A - Other specified fracture of left pubis, initial encounter for closed fracture (2) Acetabular fracture ICD Codes: S32.409A - Unspecified fracture of unspecified acetabulum, initial encounter for closed fracture SNOMED: 60592428 Qualifiers: Qualified Codes: S32.402A - Unspecified fracture of left acetabulum, initial encounter for closed fracture (3) Hypertension ICD Codes: I10 - Essential (primary) hypertension SNOMED: 63893853 Qualifiers: Qualified Codes: I10 - Essential (primary) hypertension (4) CAD S/P percutaneous coronary angioplasty ICD Codes: I25.10 - Atherosclerotic heart disease of [place] coronary artery without angina pectoris; Z98.61 - Coronary angioplasty status SNOMED: 592853005 (5) Hx of fracture of hip ICD Codes: Z87.81 - Personal history of (healed) traumatic fracture SNOMED: 430261129 (6) Hyperglycemia ICD Codes: R73.9 - Hyperglycemia, unspecified SNOMED: 96950023 (7) Diabetes ICD Codes: E11.9 - Type 2 diabetes mellitus without complications SNOMED: 99390789 Qualifiers: Qualified Codes: E11.9 - Type 2 diabetes mellitus without complications; Z79.4 - MCFP (current) use of insulin (8) Trauma left hip ICD Codes: S79.912A - Unspecified injury of left hip, initial encounter SNOMED: 135681805 Qualifiers: Qualified Codes: S79.912A - Unspecified injury of left hip, initial encounter (9) Intractable pain ICD Codes: R52 - Pain, unspecified SNOMED: 80653878 (10) Fall from ground level ICD Codes: W18.30XA - Fall on same level, unspecified, initial encounter SNOMED: 42136158 Assessment/Plan Pubic ramus fracture acetabular fracture trauma left hip intractable pain fall from ground level hx of fracture hip - imaging reviewed, Concern for pubic rami and acetabular fx - Dr Meléndez (ortho) called by ED, patient is s/p Left Hip ORIf with long nail. Left pubic rami fx and non-displaced superior column acetabular fracture. per ortho recs, nonop tx with 6 wks of protected weight bearing on left lower extremity. Follow up in 2 weeks for re-xray. - PT evaluated, rec SNF , CM aware - continue pain control with IV morphine 4mg q6hrs prn pain essential HTN - resume home meds - reviewed home meds with patient CAD s/p percuateous coronary angioplasty - cards consulted considering complicated cardiac hx - resume home meds along with eliquis, unsure of why she is on eliquis, patient does not know either - appreciate cards recs - rec outpt stress test and ziopath if no runs of afib then dc eliquis, will need outpt f/u hyperglycemia uncontrolled Diabetes type 1 - start ISS - accuchecks ppx: on eliquis, can continue as it does not seem that there is any surgery planned currently diet: cardiac/diabetic I have documented, updated, and reviewed the patient's current medication list and have documented it in the patient's note. I have spent over 43 minutes on this patient's case, and over 22 minutes was dedicated to counseling and/or care coordination Hyun Berrios MD [facility] Subjective Date patient seen: Feb 22, 2018 Time patient seen: 08:24 Allergies: Coded Allergies: No Known Allergies (Unverified , 02/20/18) Subjective f/u hip fracture, severe pain doing well, pain improving, stable, says it does not hurt if she does not move worked with PT yesterday, rec SNF CM /SW aware left forearm noted to be swollen, looks like infiltration however US vasc ordered overnight, pending ROS: 12 point ros reviewed and negative except for the above Objective Last 24 Hour Vital Signs Date Time Temp Pulse Resp B/P (MAP) Pulse Ox O2 Delivery O2 Flow Rate FiO2 02/22/18 04:00 68 02/22/18 04:00 99.1 68 18 130/68 (88) 97 02/22/18 00:00 58 02/22/18 00:00 98.0 58 18 147/70 (95) 95 02/21/18 21:00 Nasal Cannula 2.0 02/21/18 20:00 59 02/21/18 20:00 98.1 59 19 138/68 (91) 95 02/21/18 16:00 59 02/21/18 16:00 97.9 63 19 123/55 (77) 95 02/21/18 12:00 62 02/21/18 12:00 98.2 60 19 106/57 (73) 94 02/21/18 10:38 124/69 02/21/18 09:33 66 124/69 02/21/18 09:31 66 124/69 02/21/18 09:00 Nasal Cannula 2.0 Intake and Output 02/21/18 02/22/18 19:00 07:00 Intake Total 300 ml Output Total 150 ml 200 ml Balance 150 ml -200 ml Intake Oral 300 ml Output Urine Total 150 ml 200 ml Height (Feet): 5 Height (Inches): 4.00 Weight (Pounds): 166 General Appearance: no apparent distress, alert EENT: PERRL/EOMI, normal ENT inspection, TMs normal, pharynx normal Neck: non-tender, normal alignment, supple, normal inspection Cardiovascular: normal peripheral pulses, normal rate, regular rhythm Respiratory/Chest: chest wall non-tender, lungs clear, normal breath sounds, no respiratory distress, no accessory muscle use Abdomen: normal bowel sounds, non tender, soft Extremities: non-tender, normal inspection, other - dec LE rom due to pain Neurologic: no motor/sensory deficits, oriented x 3, responsive, normal mood/ affect Hyun Berrios MD Feb 22, 2018 08:29
[2018-02-22] MEDS: Eliquis 2.5mg tablet ORAL SCH ×2 (08:43→17:07)
[2018-02-22] MEDS: Metoprolol Succinate XL 100mg tab ORAL SCH (08:43)
[2018-02-22] MEDS: Norco 5mg/325mg tab ORAL PRN (08:55)
[2018-02-22] MEDS ORDERED: Imdur 30mg tab ORAL SCH (09:00)
--- NOTE | 2018-02-22 16:23 | Cardiology Progress Note ---
Assessment/Plan Status: stable Assessment/Plan Assessment/Plan Problem List: (1) Pubic ramus fracture (2) Acetabular fracture (3) Hypertension (4) CAD S/P percutaneous coronary angioplasty (5) Hx of fracture of hip (6) Hyperglycemia (7) Diabetes (8) Trauma left hip (9) Intractable pain (10) Fall from ground level Plan: Currently stable pain control Physical therapy Currently non operative treatment with outpatient followup Recommend outpatient stress test to evaluate coronary perfusion prior to any procedures given hx of CAD and cardiac risk factors Patient currently in normal sinus rhythm, consider outpatient ziopatch and if no runs of AFIB then d/c eliquis Maintain aspirin Maintain statin Continue imdur/norvasc for coronary vasodilation and BP management Continue metoprolol Strict glucose control Will need outpatient echocardiogram to evaluate LV function/filling pressures Follow up in clinic 1-2 weeks Subjective Cardiovascular: Reports: no symptoms Respiratory: Reports: no symptoms Gastrointestinal/Abdominal: Reports: no symptoms Genitourinary: Reports: no symptoms Subjective No acute events, no chest pain, plan to go to rehab Objective Last 24 Hour Vital Signs Date Time Temp Pulse Resp B/P (MAP) Pulse Ox O2 Delivery O2 Flow Rate FiO2 02/22/18 16:07 97.6 71 19 130/62 (84) 96 02/22/18 12:00 65 02/22/18 12:00 97.5 66 19 122/59 (80) 96 02/22/18 09:00 Nasal Cannula 2.0 02/22/18 08:43 138/71 02/22/18 08:43 66 138/71 02/22/18 08:00 97.5 66 22 138/71 (93) 96 02/22/18 08:00 61 02/22/18 04:00 68 02/22/18 04:00 99.1 68 18 130/68 (88) 97 02/22/18 00:00 58 02/22/18 00:00 98.0 58 18 147/70 (95) 95 02/21/18 21:00 Nasal Cannula 2.0 02/21/18 20:00 59 02/21/18 20:00 98.1 59 19 138/68 (91) 95 General Appearance: no apparent distress, alert EENT: PERRL/EOMI, normal ENT inspection, TMs normal, pharynx normal Neck: non-tender, normal alignment, supple, normal inspection, no JVD Rhythm: NSR Cardiovascular: normal peripheral pulses, normal rate, regular rhythm Respiratory/Chest: chest wall non-tender, lungs clear, normal breath sounds, no respiratory distress, no accessory muscle use Abdomen: normal bowel sounds, non tender, soft, no organomegaly, hyperactive bowel sounds Extremities: non-tender, normal inspection Neurologic: inspector wire rope II-XII grossly normal, no motor/sensory deficits Intake and Output 02/21/18 02/22/18 19:00 07:00 Intake Total 300 ml Output Total 150 ml 200 ml Balance 150 ml -200 ml Intake Oral 300 ml Output Urine Total 150 ml 200 ml Microbiology Date/Time Source Procedure Growth Status 02/20/18 22:35 Urine,Clean Catch Urine Culture - Preliminary Gram Negative Bacillus 1 Resulted Magdi Howard MD Feb 22, 2018 16:23
[2018-02-22] MEDS ORDERED: Norco 5mg/325mg tab ORAL PRN (21:00)
[2018-02-22] MEDS ORDERED: Atorvastatin 20mg tab ORAL SCH (21:00)
[2018-02-23] VITALS: BP 152/72
[2018-02-23 04:00] VITALS: BP 155/69
[2018-02-23] MEDS: NovoLOG Insulin Flexpen SUBQ SCH ×2 (06:27→11:33)
--- NOTE | 2018-02-23 07:45 | Discharge Summary ---
Discharge Summary Hospital Course Date of Admission Feb 21, 2018 at 00:53 Date of Discharge 02/23/18 Admitting Diagnosis fracture left acetabulum HPI Markie Orellana is a 72 year old female who was admitted on Feb 21, 2018 at 00:53 for Fracture Left Acetabulum 72 yo female with h/o CAD s/p stents x 4. Patient is a poor historian and does not know why she takes her medications however does know the medications she is on and states she is complaint. Patient states she had stents placed in [place]. Patient presented to [facility] after stepping incorrectly off of a curb while shopping today. She states she fell on her left side and states pain is only on her left hip, denies radiation of pain, denies any neck pain or trauma to her head. Denies headaches or visual changes. She states her pain was 10/10 in severity and was unable to walk on it after the incident. Denies chest pain or sob. XRay left hip done, Concern for pubic rami and acetabular fx. Dr. Meléndez called by ED.Per Ortho patient is s/p Left Hip ORIf with long nail. Left pubic rami fx and non-displaced superior column acetabular fracture. per ortho recs, nonop tx with 6 wks of protected weight bearing on left lower extremity. Follow up in 2 weeks for re-xray. PT evaluated, rec skilled facility for rehab. patient accepted to [facility], planned dc to [facility] today. Continue pain control and PT. Cardiology Dr. Howard also consulted for cardiac eval during admission, per recs recommend outpatient stress test to evaluate coronary perfusion prior to any procedures given hx of CAD and cardiac risk factors, Patient currently in normal sinus rhythm, consider outpatient ziopatch and if no runs of AFIB then d/ c eliquis patient to dc to [facility] f/u with pcp, cardiology and ortho outpt Physical Exam: General Appearance: no apparent distress, alert EENT: PERRL/EOMI, normal ENT inspection, TMs normal, pharynx normal Neck: non-tender, normal alignment, supple, normal inspection Cardiovascular: normal peripheral pulses, normal rate, regular rhythm Respiratory/Chest: chest wall non-tender, lungs clear, normal breath sounds, no respiratory distress, no accessory muscle use Abdomen: normal bowel sounds, non tender, soft Extremities: non-tender, normal inspection, improved ROM of left LE Neurologic: no motor/sensory deficits, oriented x 3, responsive, normal mood/ affect Hospital Course Pubic ramus fracture acetabular fracture trauma left hip intractable pain fall from ground level hx of fracture hip - imaging reviewed, Concern for pubic rami and acetabular fx - Dr Meléndez (ortho) called by ED, patient is s/p Left Hip ORIf with long nail. Left pubic rami fx and non-displaced superior column acetabular fracture. per ortho recs, nonop tx with 6 wks of protected weight bearing on left lower extremity. Follow up in 2 weeks for re-xray. - PT evaluated, rec rehab facility - continue pain control with IV morphine 4mg q6hrs prn pain essential HTN - resume home meds - reviewed home meds with patient CAD s/p percuateous coronary angioplasty - cards consulted considering complicated cardiac hx - resume home meds along with eliquis, unsure of why she is on eliquis, patient does not know either - appreciate cards recs - rec outpt stress test and ziopath if no runs of afib then dc eliquis, will need outpt f/u hyperglycemia uncontrolled Diabetes type 1 -resume home meds ppx: on eliquis, can continue as it does not seem that there is any surgery planned currently diet: cardiac/diabetic I have documented, updated, and reviewed the patient's current medication list and have documented it in the patient's note. I have spent over 38 minutes on this patient's case/counseling and care coordination along with discharge planning. Hyun Berrios MD [facility] Discharge Medications Continued Medications: Amlodipine Besylate (Norvasc) 10 Mg Tablet 10 MG ORAL DAILY, TAB (This prescription has been renewed) Apixaban (Eliquis) 2.5 Mg Tablet 2.5 MG PO BID, TAB Folic Acid* (Folic Acid*) 1 Mg Tablet 1 MG ORAL DAILY, TAB (This prescription has been renewed) Glimepiride* (Amaryl*) 1 Mg Tablet 4 MG ORAL BID, TAB Isosorbide Dinitrate* (Isordil*) 10 Mg Tablet 120 MG ORAL DAILY, #20 TAB 0 Refills Metoprolol/Hydrochlorothiazide (Metoprolol-Hctz 100-25 Mg Tab) 1 Each Tablet 1 TAB ORAL DAILY, TAB (This prescription has been renewed) Olmesartan/Hydrochlorothiazide 40-12.5MG (Benicar Hct 40-12.5 Mg Tablet) 1 Each Tablet 1 TAB ORAL DAILY, TAB (This prescription has been renewed) Rosuvastatin Calcium* (Crestor*) 20 Mg Tablet 20 MG ORAL DAILY, TAB (This prescription has been renewed) Sitagliptin (Januvia) 100 Mg Tablet 100 MG ORAL DAILY, TAB (This prescription has been renewed) Discharge Condition Upon Discharge: stable Discharge Disposition Patient was discharged to [facility] Discharge Diagnoses: (1) Acetabular fracture (2) Pubic ramus fracture (3) Intractable pain (4) Trauma left hip (5) Fall from ground level (6) CAD S/P percutaneous coronary angioplasty (7) Hyperglycemia (8) Diabetes (9) Hypertension Hyun Berrios MD Feb 23, 2018 07:45
[2018-02-23 08:00] VITALS: BP 148/66
[2018-02-23] MEDS ORDERED: Eliquis 2.5mg tablet ORAL SCH (09:00)
[2018-02-23] MEDS ORDERED: Imdur 30mg tab ORAL SCH (09:00)
[2018-02-23] MEDS ORDERED: Metoprolol Succinate XL 100mg tab ORAL SCH (09:00)
[2018-02-23 12:00] VITALS: BP 128/61
--- NOTE | 2018-02-23 13:32 | Cardiology Progress Note ---
Assessment/Plan Status: stable Assessment/Plan Assessment/Plan Problem List: (1) Pubic ramus fracture (2) Acetabular fracture (3) Hypertension (4) CAD S/P percutaneous coronary angioplasty (5) Hx of fracture of hip (6) Hyperglycemia (7) Diabetes (8) Trauma left hip (9) Intractable pain (10) Fall from ground level Plan: Currently stable pain control Physical therapy Currently non operative treatment with outpatient followup Recommend outpatient stress test to evaluate coronary perfusion prior to any procedures given hx of CAD and cardiac risk factors Patient currently in normal sinus rhythm, consider outpatient ziopatch and if no runs of AFIB then d/c eliquis Maintain aspirin Maintain statin Continue imdur/norvasc for coronary vasodilation and BP management Continue metoprolol Strict glucose control Will need outpatient echocardiogram to evaluate LV function/filling pressures Follow up in clinic 1-2 weeks Subjective Cardiovascular: Reports: no symptoms Respiratory: Reports: no symptoms Gastrointestinal/Abdominal: Reports: no symptoms Genitourinary: Reports: no symptoms Subjective No acute events, no chest pain, plan to go to rehab Objective Last 24 Hour Vital Signs Date Time Temp Pulse Resp B/P (MAP) Pulse Ox O2 Delivery O2 Flow Rate FiO2 02/23/18 09:14 74 148/66 02/23/18 09:13 148/66 02/23/18 09:00 Nasal Cannula 2.0 02/23/18 08:00 100.3 74 20 148/66 (93) 94 02/23/18 04:00 98.7 64 20 155/69 (97) 96 02/23/18 00:00 98.7 71 20 152/72 (98) 92 02/22/18 22:07 65 157/80 02/22/18 21:00 Nasal Cannula 2.0 02/22/18 20:00 98.1 64 19 122/69 (86) 96 02/22/18 16:07 97.6 71 19 130/62 (84) 96 02/22/18 16:00 70 General Appearance: no apparent distress, alert EENT: PERRL/EOMI, normal ENT inspection Neck: non-tender, normal alignment, supple, normal inspection, no JVD Rhythm: SB Cardiovascular: normal peripheral pulses, normal rate, regular rhythm Respiratory/Chest: chest wall non-tender, lungs clear Abdomen: normal bowel sounds, non tender Extremities: normal range of motion Neurologic: medical file clerk II-XII grossly normal, no motor/sensory deficits Intake and Output 02/22/18 02/23/18 19:00 07:00 Intake Total 500 ml 250 ml Output Total 700 ml 550 ml Balance -200 ml -300 ml Intake Oral 500 ml 250 ml IV Total 0 ml Output Urine Total 700 ml 550 ml Microbiology Date/Time Source Procedure Growth Status 02/20/18 22:35 Urine,Clean Catch Urine Culture - Final Escherichia Coli Complete Magdi Howard MD Feb 23, 2018 13:32
--- NOTE | 2018-02-24 11:59 | Diagnostic Imaging Report ---
APPROVED REPORT CPT Code: 87130 Present Symptoms Upper Extremity Edema: Left LEFT UPPER EXTREMITY: Venous imaging reveals patency of the internal jugular, subclavian, axillary and brachial veins. The cephalic and basilic veins are also patent. Doppler indicates normal spontaneous flow within these venous segments.
--- NOTE | 2018-02-24 11:59 | Diagnostic Imaging Report ---
APPROVED REPORT CPT Code: 79373 Symptoms Other : Swelling LEFT UPPER EXTREMITY: Imaging of the subclavian, axillary, brachial, radial and ulnar arteries is within normal limits. There is no evidence of stenosis or occlusions within these segments. The Doppler waveforms of the left upper extremity are multiphasic, consistent with normal inflow to the left upper extremity.
== END 2018-02-23 13:55 | disposition short-term general hospital (02) | DRG 536 ==
LOC: EDBD 19:28 → EMR 20:21 → 2E 02-21 00:53 → EDBEDREQ 02-21 01:20 → 2E 02-21 02:02 → 4E 02-22 20:34
DX: S32.402A Unspecified fracture of left acetabulum, initial encounter for closed fracture (principal); S32.599A Other specified fracture of unspecified pubis, initial encounter for closed fracture; W18.39XA Other fall on same level, initial encounter; I10 Essential (primary) hypertension; I25.10 Atherosclerotic heart disease of native coronary artery without angina pectoris; Z95.5 Presence of coronary angioplasty implant and graft; E11.65 Type 2 diabetes mellitus with hyperglycemia; Z79.01 Long term (current) use of anticoagulants
CPT/HCPCS: 36415; 72170; 72192; 73502; 80048; 80053; 81003; 82248; 82962; 85007; 85025; 85610; 85730; 87086; 87181; 93005; 93926; 93971; 96365; 99284; 99285; J1815